=== PATIENT | female | born 1990 | race Caucasian/White ===

== ENCOUNTER 2017-02-21 13:44 | Emergency (ER) | payer SELFPAY ==
[~2017-02-21] VITALS: Ht 160 cm; Wt 90.7 kg
[2017-02-21 14:10] VITALS: BP 167/101
--- NOTE | 2017-02-21 14:47 | PHYS DOC ---
Past Medical History Past Medical History: Other Additional Past Medical Histor: Insulin resistance Past Surgical History: No Surgical History Alcohol Use: None Drug Use: None Adult General Chief Complaint Chief Complaint: RIB PAIN HPI HPI Patient is a 26 year old female presents emergency department stating that she was sitting on the couch when she developed severe left rib pain and discomfort. She denies taking anything for pain and discomfort. She states that she has increased pain with inspiration. She denies any injury or trauma to the rib area. Patient denies any shortness of air difficulty breathing. Review of Systems Review of Systems Constitutional: Denies fever or chills [] Eyes: Denies change in visual acuity, redness, or eye pain [] HENT: Denies nasal congestion or sore throat [] Respiratory: Denies cough or shortness of breath [] Cardiovascular: No additional information not addressed in HPI [] GI: Denies abdominal pain, nausea, vomiting, bloody stools or diarrhea [] : Denies dysuria or hematuria [] Musculoskeletal: Denies back pain or joint pain [] Integument: Denies rash or skin lesions [] Neurologic: Denies headache, focal weakness or sensory changes [] Endocrine: Denies polyuria or polydipsia [] Allergies Allergies Allergies Coded Allergies Type Severity Reaction Last Updated Verified No Known Drug Allergies 01/17/15 No Physical Exam Physical Exam Constitutional: Well developed, well nourished, no acute distress, non-toxic appearance. [] HENT: Normocephalic, atraumatic, bilateral external ears normal, oropharynx moist, no oral exudates, nose normal. [] Eyes: PERRLA, EOMI, conjunctiva normal, no discharge. [] Neck: Normal range of motion, no tenderness, supple, no stridor. [] Cardiovascular:Heart rate regular rhythm, no murmur [] Lungs & Thorax: Bilateral breath sounds clear to auscultation. No discoloration no bruising noted along the rib area equal chest expansion noted. Skin: Warm, dry, no erythema, no rash. [] Extremities: No tenderness, no cyanosis, no clubbing, ROM intact, no edema. [] Neurologic: Alert and oriented X 3, normal motor function, normal sensory function, no focal deficits noted. [] Psychologic: Affect normal, judgement normal, mood normal. [] Current Patient Data Vital Signs Vital Signs Date Time Temp Pulse Resp B/P (MAP) Pulse Ox O2 Delivery O2 Flow Rate FiO2 02/21/17 14:10 98.4 71 20 100 Room Air 98.4 Lab Values Laboratory Tests Test 02/21/17 14:25 POC Urine HCG, Qualitative Hcg negative (Negative) EKG EKG [] Radiology/Procedures Radiology/Procedures [][facility] [address] [place] [address] IMAGING REPORT Signed PATIENT: ED MERCADO ACCOUNT: [id number] : 1990 LOCATION: ER AGE: 26 SEX: F EXAM STATUS: REG ER ORD. PHYSICIAN: OTTO ALBERTO APRN REASON: left rib pain no injury PROCEDURE: RIBS LEFT AND PA CHEST Three-view left rib detail series and PA view chest x-ray History: Left-sided rib pain and chest pain today. Findings: No acute left rib fracture is evident. No acute lung infiltrate or pleural effusion or pulmonary edema or pneumothorax is seen. The heart size and pulmonary vasculature and mediastinum and both mary are unremarkable. IMPRESSION: No acute radiographic abnormality is seen. No acute left rib fracture. DICTATED and SIGNED BY: DANA RECINOS MD DATE: 02/21/17 1522 CC: OTTO ALBERTO APRN; NON,STAFF; UNKNOWN PCP NAME ~ Course & Med Decision Making Course & Med Decision Making Pertinent Labs and Imaging studies reviewed. (See chart for details) X-rays were negative for any bony abnormalities in the rib area. Patient will be discharged home with recommendations recommended ibuprofen for pain and discomfort warm moist packs to the areas. Drink plenty of fluids. Signs and symptoms to return back to emergency department been provided. All questions and concerns been answered at patient's bedside. Patient agrees with discharge instructions, treatment regimen and followup recommendations. Patient was provided with x-ray results as well as informing patient that it appeared to be some gas noted underneath the area. Patient states I There was nothing wrong with my ribs it's more inside. Explained to patient that the lungs appear to be normal as well. Patient stated that this is not gas pain. Explained to patient she can take 800 mg of ibuprofen every 8 hours for pain and discomfort she may follow up with her primary care physician patient was discharged in stable condition. [] Dragon Disclaimer Dragon Disclaimer This electronic medical record was generated, in whole or in part, using a voice recognition dictation system. Departure Departure Impression: Primary Impression: Rib pain on left side Disposition: HOME, SELF-CARE Condition: STABLE Referrals: UNKNOWN PCP NAME (PCP) Patient Instructions: Rib Contusion Additional Instructions: Activity as tolerated Ibuprofen 800 mg every 8 hours for pain and discomfort Make sure that you eat when taking this medication to prevent upset stomach Warm moist packs to the chest area Followup with primary care provider in 5-7 days Return to emergency department as needed for signs and symptoms that become worse. OTTO ALBERTO OVERSIZE LOAD PILOT ESCORT Feb 21, 2017 14:47
--- NOTE | 2017-02-21 15:26 | RAD ---
Three-view left rib detail series and PA view chest x-ray History: Left-sided rib pain and chest pain today. Findings: No acute left rib fracture is evident. No acute lung infiltrate or pleural effusion or pulmonary edema or pneumothorax is seen. The heart size and pulmonary vasculature and mediastinum and both mary are unremarkable. IMPRESSION: No acute radiographic abnormality is seen. No acute left rib fracture.
== END 2017-02-21 15:36 | disposition home or self-care (01) ==
LOC: ER 13:44
DX: R07.81 Pleurodynia (principal); E88.81 Metabolic syndrome and other insulin resistance
CPT/HCPCS: 71101; 81025; 99284-25

== ENCOUNTER 2018-02-17 08:50 | Emergency (ER) | payer SELFPAY ==
[~2018-02-17] VITALS: Ht 160 cm; Wt 93.0 kg
[2018-02-17 09:21] VITALS: BP 135/82
[2018-02-17] MEDS ORDERED: ORPHENADRINE CITRATE 60 MG/2 ML VIAL. IM ONE (09:45)
[2018-02-17] MEDS ORDERED: KETOROLAC 15 MG/ML VIAL. IM ONE (09:45)
--- NOTE | 2018-02-17 09:47 | PHYS DOC ---
Past Medical History Past Medical History: Kidney Stone, Other Additional Past Medical Histor: insulin resistance, PCOS, pre eclampsia causing CHF - heart murmur Past Surgical History: , Tonsillectomy, Other Additional Past Surgical Histo: adenoids, cataract Alcohol Use: None Drug Use: None Adult General Chief Complaint Chief Complaint: SHOUDLER HPI HPI 27-year-old female presents to ER with complaints of mid to left side upper back pain which started approximately 6-8 weeks ago. Patient denies any known injury. She reports she has intermittent numbness and tingling in her left hand. Patient reports she took hydrocodone at 2 AM and Aleve at 3 AM with minimal relief in discomfort. Patient denies any shortness of air, chest pain, fever or chills, swelling, or discoloration in extremity skin color. Review of Systems Review of Systems Constitutional: Denies fever or chills [] Eyes: Denies change in visual acuity, redness, or eye pain [] HENT: Denies sore throat Respiratory: Denies cough or shortness of breath [] Cardiovascular: Denies CP/palpitations GI: Denies abdominal pain, nausea, vomiting, or diarrhea [] : Denies dysuria or hematuria [] Musculoskeletal: Reports mid to lt side upper back and bilat. sides of neck discomfort- denies swelling in extremities. Reports intermittent lt hand numbness/tingling Integument: Denies rash, swelling, or skin lesions [] Neurologic: Denies headache, focal weakness or sensory changes [] All other systems were reviewed and found to be within normal limits, except as documented in this note. Current Medications Current Medications Current Medications Medications (Trade) Dose Ordered Sig/Vaibhav Start Time Stop Time Status Last Admin Dose Admin Ketorolac Tromethamine (Toradol 15mg Vial) 60 mg 1X ONCE 02/17/18 09:45 02/17/18 09:46 Cancel Ketorolac Tromethamine (Toradol Im) 60 mg 1X ONCE 02/17/18 10:00 02/17/18 10:01 DC 02/17/18 10:00 60 MG Orphenadrine Citrate (Norflex) 60 mg 1X ONCE 02/17/18 09:45 02/17/18 09:46 DC 02/17/18 10:00 60 MG Allergies Allergies Allergies Coded Allergies Type Severity Reaction Last Updated Verified No Known Drug Allergies 01/17/15 No Physical Exam Physical Exam Constitutional: Well developed, well nourished, no acute distress, non-toxic appearance. [] HENT: Normocephalic, atraumatic, bilateral ears normal, oropharynx moist, nose normal. [] Eyes: PERRLA, no nystagmus, conjunctiva normal, no discharge. [] Neck: Normal range of motion, tender on palp. lateral sides of neck- no midline cervical tenderness on palp. or palp. deformity, supple, no gross adenopathy Cardiovascular:Heart rate regular rhythm Lungs & Thorax: Resp. equal/nonlabored. Clear bilat. lung sounds Abdomen: Bowel sounds normal, soft, no tenderness Skin: Warm, dry, no erythema, no rash. [] Back: Tender to palp. mid thoracic spine- no palp. deformity/curvature- pain extends into lt upper back at scapula into lt lateral neck- no swelling, no CVA tenderness. [] Extremities: No tenderness, no cyanosis, no clubbing, ROM intact- increased mid/ upper lt side back pain with ROM of upper extremities, no edema. [] Neurologic: Alert and oriented X 3, normal motor function, normal sensory function, no focal deficits noted. [] Psychologic: Affect normal, judgement normal, mood normal. [] Current Patient Data Vital Signs Vital Signs Date Time Temp Pulse Resp B/P (MAP) Pulse Ox O2 Delivery O2 Flow Rate FiO2 02/17/18 09:21 98.1 71 18 135/82 (99) 98 Room Air 98.1 EKG EKG [] Radiology/Procedures Radiology/Procedures PROCEDURE: THORACIC SPINE 3V 3 views thoracic spine 02/17/2018 INDICATION: Midthoracic pain radiating into the left upper back. COMPARISON STUDY: None. FINDINGS: The cervicothoracic junction is poorly visualized secondary to overlying soft tissues. Visualized thoracic spine demonstrates no evidence of acute fracture or alignment abnormality. Vertebral body heights are maintained. No significant spondylolisthesis is seen. IMPRESSION: Somewhat limited study without evidence of acute fracture or alignment abnormality Electronically signed by: Abdullahi Ochoa MD (02/17/2018 10:26 AM) [facility] DICTATED and SIGNED BY: ABDULLAHI OCHOA MD DATE: 02/17/18 1024 Course & Med Decision Making Course & Med Decision Making Pertinent Imaging studies reviewed. (See chart for details) [] Dragon Disclaimer Dragon Disclaimer This electronic medical record was generated, in whole or in part, using a voice recognition dictation system. Departure Departure Impression: Primary Impression: Back pain Additional Impression: Muscle strain Disposition: 01 HOME, SELF-CARE Condition: STABLE Referrals: UNKNOWN PCP NAME (PCP) GENO RIOS II, MD orthopedic doctor Patient Instructions: Back Pain, Adult, Muscle Strain Additional Instructions: If symptoms persist you should follow-up with an orthopedic doctor for further evaluation/care. You can use over the counter ibuprofen and/or tylenol as directed on container. Ice and/or heat application to affected area every 3-4 hours for 20-30 minutes at a time avoiding direct skin contact with ice/heat. Over the counter sports cream as directed. Wear sling to left arm to provide support to your back/arm. You should remove sling several times a day to perform range of motion with your left arm to prevent locked joint. Scripts Orphenadrine Citrate (ORPHENADRINE CITRATE) 100 Mg Tablet.er 1 TAB PO BIDprn, #10 TAB 0 Refills Prov: ANTONIO SANTOS APRN 02/17/18 Problem Qualifiers ANTONIO SANTOS APRN Feb 17, 2018 09:47
[2018-02-17] MEDS ORDERED: KETOROLAC 60 MG/2 ML INJ. IM ONE (10:00)
--- NOTE | 2018-02-17 10:29 | RAD ---
3 views thoracic spine 02/17/2018 INDICATION: Midthoracic pain radiating into the left upper back. COMPARISON STUDY: None. FINDINGS: The cervicothoracic junction is poorly visualized secondary to overlying soft tissues. Visualized thoracic spine demonstrates no evidence of acute fracture or alignment abnormality. Vertebral body heights are maintained. No significant spondylolisthesis is seen. IMPRESSION: Somewhat limited study without evidence of acute fracture or alignment abnormality Electronically signed by: Abdullahi Barreto MD (02/17/2018 10:26 AM) [facility]
[2018-02-17] MEDS ORDERED: ORPH100T PO (10:37)
== END 2018-02-17 10:49 | disposition home or self-care (01) ==
LOC: ER 08:50
DX: S29.012A Strain of muscle and tendon of back wall of thorax, initial encounter (principal); Z98.890 Other specified postprocedural states; Z90.89 Acquired absence of other organs; Z87.442 Personal history of urinary calculi; X58.XXXA Exposure to other specified factors, initial encounter; Y93.89 Activity, other specified; Y92.89 Other specified places as the place of occurrence of the external cause; Y99.8 Other external cause status
CPT/HCPCS: 72072; 96372; 99284; J1885; J2360

== ENCOUNTER → 2021-04-24 | Outpatient (CLI) | payer OTHER ==
[~2021-04-24] MED LIST: ORPH100T PO
== END ==
LOC: LAB 14:58
PROVIDERS: ATTEND Internal Medicine Pulmonary Disease
DX: R05.9 Cough, unspecified (principal); R51.9 Headache, unspecified; J02.9 Acute pharyngitis, unspecified; R11.0 Nausea; R09.81 Nasal congestion; R19.7 Diarrhea, unspecified; R53.81 Other malaise; R68.83 Chills (without fever); M79.10 Myalgia, unspecified site; Z20.822 Contact with and (suspected) exposure to COVID-19
CPT/HCPCS: U0003; U0005

== ENCOUNTER 2021-06-04 06:56 | Emergency (ER) | payer BC, OTHER ==
[~2021-06-04] VITALS: Ht 157.5 cm; Wt 90.9 kg
[2021-06-04 07:05] VITALS: BP 139/83
--- NOTE | 2021-06-04 07:40 | PHYS DOC ---
Past Medical History Past Medical History: Kidney Stone, Other Additional Past Medical Histor: insulin resistance, PCOS, pre eclampsia causing CHF - heart murmur Past Surgical History: , Tonsillectomy, Other Additional Past Surgical Histo: adenoids, cataract, cystoscopy Smoking Status: Never Smoker Alcohol Use: None Drug Use: None General Adult EDM: Chief Complaint: FOOT INJURY PAIN HPI: HPI: Patient is a 30 year old female who presents with right ankle pain. Discomfort started approximately 3 or 4 days ago. 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 When she went to sleep in the morning she did not have any discomfort. When she woke up in the afternoon and put her feet on the ground she had discomfort with weightbearing. The pain is just below the lateral malleolus. Worse with weightbearing. Has been able to continue bearing weight going to work. She does not recall any specific trauma or rolling her ankle. She has had no previous injuries or surgeries to this ankle. She has noticed mild swelling. Review of Systems: Review of Systems: Constitutional: Denies fever or chills. [] HENT: Denies nasal congestion or sore throat. [] Respiratory: Denies cough or shortness of breath. [] Cardiovascular: Denies chest pain Musculoskeletal: Reports right ankle pain Heart Score: C/O Chest Pain: No Allergies: Allergies: Allergies Coded Allergies Type Severity Reaction Last Updated Verified No Known Drug Allergies 06/04/21 No Physical Exam: PE: Constitutional: Well developed, well nourished, no acute distress, non-toxic appearance. [] HENT: Normocephalic, atraumatic Cardiovascular: Normal rate Lungs & Thorax: Normal work of breathing Extremities: Right ankle is without bony tenderness over the midfoot, base of fifth metatarsal, either malleoli. No other bony tenderness found. Some mild tenderness overlying the region of posterior talofibular ligaments. There is mild swelling in this area as well. Pain is made worse with passive foot eversion. Not significantly changed with ankle dorsiflexion or plantarflexion. DP pulse 2+, PT pulse 2+. Brisk cap refill. No edema, erythema, or tenderness of the calf. Neurologic: Alert and oriented X 3, normal motor function, normal sensory function, no focal deficits noted. [] Current Patient Data: Vital Signs: Vital Signs Date Time Temp Pulse Resp B/P (MAP) Pulse Ox O2 Delivery O2 Flow Rate FiO2 06/04/21 07:05 98.0 80 16 139/83 (101) 97 Room Air 98.0 EKG: EKG: [] Radiology/Procedures: Radiology/Procedures: [] Course & Med Decision Making: Course & Med Decision Making Pertinent Labs and Imaging studies reviewed. (See chart for details) Patient 30-year-old female who presents with signs/symptoms of an ankle sprain but without recall of an inciting event. She has no bony tenderness, and swelling and pain is limited to the region of the posterior talofibular ligament with reproducible pain with foot eversion. We discussed ankle plain films, and agreed to defer any imaging due to limited utility. [place] ankle rules negative. Patient advised on conservative treatment measures with compressive wrap, Tylenol/NSAIDs, ice, elevation, and rest. Dragon Disclaimer: Dragon Disclaimer: This electronic medical record was generated, in whole or in part, using a voice recognition dictation system. Departure Departure Impression: Primary Impression: Ankle sprain Disposition: HOME / SELF CARE / HOMELESS Condition: STABLE Referrals: UNKNOWN PCP NAME (PCP) Patient Instructions: Ankle Sprain, Acute, with Phase I Rehab-Sports[facility] Additional Instructions: Please use a mild compressive Christ wrap when walking or bearing weight on your ankle. Consider icing, rest, and elevation. For pain tylenol and ibuprofen are best used on a schedule. Please alternate between the two. -Tylenol 1000 mg every 6 hours (do not exceed 4000 mg in one day) -Ibuprofen 600 mg every 6 hours. Take with food. Do not take for more than 1 week. See attached instructions for stretches and exercises. GURDEEP COLLIER MD Jun 04, 2021 07:39
== END 2021-06-04 07:46 | disposition home or self-care (01) ==
LOC: ER 06:56
DX: S93.401A Sprain of unspecified ligament of right ankle, initial encounter (principal); X50.9XXA Other and unspecified overexertion or strenuous movements or postures, initial encounter; Y93.89 Activity, other specified; Y92.89 Other specified places as the place of occurrence of the external cause; Y99.8 Other external cause status
CPT/HCPCS: 99282

== ENCOUNTER → 2021-08-15 | Outpatient (CLI) | payer OTHER ==
[2021-08-15 11:16] LABS: ALBUMIN 3.7 g/dL (3.4-5.0); ALBUMIN/GLOBULIN RATIO 0.9 (1.0-1.7); CREATININE 0.9 mg/dL (0.6-1.0); GFR 72.6; POTASSIUM 3.9 mmol/L (3.5-5.1); TOTAL BILIRUBIN 0.4 mg/dL (0.2-1.0); TOTAL PROTEIN 7.7 g/dL (6.4-8.2)
[2021-08-15 11:19] LABS: CHOLESTEROL/HDL RATIO 4.6
[2021-08-15 11:38] LABS: BASO % 1 % (0-3); EOS # 0.2 x10^3/uL (0.0-0.7); EOS % 3 % (0-3); HEMOGLOBIN 12.6 g/dL (12.0-15.5); LYMPH # 2.1 x10^3/uL (1.0-4.8); LYMPH % 35 % (24-48); MEAN CORPUSCULAR HEMOGLOBIN 27 pg (25-35); MEAN CORPUSCULAR HGB CONC 33 g/dL (31-37); MEAN CORPUSCULAR VOLUME 82 fL (79-100); MONO # 0.4 x10^3/uL (0.0-1.1); MONO % 7 % (0-9); NEUT # 3.3 x10^3/uL (1.8-7.7); NEUT % 55 % (31-73); PLATELET COUNT 257 x10^3/uL (140-400); RED BLOOD COUNT 4.66 x10^6/uL (3.50-5.40); RED CELL DISTRIBUTION WIDTH 13.3 % (11.5-14.5); WHITE BLOOD COUNT 5.9 x10^3/uL (4.0-11.0)
[2021-08-16 01:17] LABS: HEMOGLOBIN A1C 5.4 % (4.8-5.6)
== END ==
LOC: LAB 10:30
PROVIDERS: ATTEND Family Medicine
DX: Z00.00 Encounter for general adult medical examination without abnormal findings (principal); R53.83 Other fatigue
CPT/HCPCS: 36415; 80053; 80061; 82306; 83036; 84443; 85025